=== PATIENT | male | born 1950 | race Caucasian/White ===

== ENCOUNTER → 2018-02-19 | Outpatient (CLI) | payer MEDICARE | LOC: M.ULTRA 09:46 | DX: G45.9 Transient cerebral ischemic attack, unspecified (principal); H53.129 Transient visual loss, unspecified eye ==

== ENCOUNTER 2019-12-07 15:17 | Inpatient (IN) | payer MEDICARE ==
[~2019-12-07] VITALS: Ht 175.3 cm; Wt 82.1 kg
[2019-12-07 15:28] VITALS: BP 149/88
[2019-12-07 16:00] LABS: HEMATOCRIT 42.7 % (42.0-52.0); HEMOGLOBIN 14.6 gm/dL (14.0-18.0); MCH 28.3 pg (26.0-34.0); MCHC 34.1 g/dL (28.0-37.0); MCV 83.1 fL (80.0-100.0); MPV 9.7 fl. (7.2-11.1); NUCLEATED RBCS 0 /100WBC; PLATELET COUNT* 213 thou/uL (150-400); RBC 5.14 mil/uL (4.50-6.00); RDW-CV 13.8 % (10.5-14.5); WBC 7.6 thou/uL (4.0-11.0)
[2019-12-07 16:16] LABS: ALBUMIN 4.2 g/dL (3.4-5.0); CALCIUM 9.2 mg/dL (8.5-10.1); CREATININE 1.6 mg/dL (0.6-1.3); POTASSIUM 4.9 mmol/L (3.5-5.1); TOTAL BILIRUBIN 0.8 mg/dL (<0.1-1.0); TOTAL PROTEIN 8.2 g/dL (6.4-8.2)
[2019-12-07 16:28] LABS: ABSOLUTE LYMPHOCYTES 0.5 thou/uL (0.8-5.3); ABSOLUTE MONOCYTES 0.2 thou/uL (0.0-1.2); ABSOLUTE NEUTROPHILS 6.9 thou/uL (1.6-8.1)
[2019-12-07 16:29] LABS: PLATELET ESTIMATE ADEQUATE
[2019-12-07 17:53] LABS: URINE BILIRUBIN NEGATIVE (Negative); URINE BLOOD TRACE (Negative); URINE CLARITY CLEAR; URINE COLOR YELLOW; URINE GLUCOSE-RANDOM NEGATIVE (Negative); URINE KETONES TRACE (Negative); URINE LEUKOCYTES-REFLEX NEGATIVE (Negative); URINE NITRITE-REFLEX NEGATIVE (Negative); URINE PROTEIN NEGATIVE (Negative); URINE UROBILINOGEN 0.2 E.U./dl (0.2-1.0)
[2019-12-07 20:10] VITALS: BP 142/81
[2019-12-07 20:12] VITALS: BP 148/77
[2019-12-08 00:45] VITALS: BP 115/65
[2019-12-08 04:32] VITALS: BP 116/69
[2019-12-08 04:53] LABS: WBC 6.4 thou/uL (4.0-11.0)
[2019-12-08 04:58] LABS: ABSOLUTE EOSINOPHILS 0.3 thou/uL (0.0-0.7); ABSOLUTE LYMPHOCYTES 1.8 thou/uL (0.8-5.3); ABSOLUTE MONOCYTES 0.6 thou/uL (0.0-1.2); ABSOLUTE NEUTROPHILS 3.7 thou/uL (1.6-8.1); BASOPHILS 0.7 %; EOSINOPHILS 4.4 %; HEMATOCRIT 39.1 % (42.0-52.0); HEMOGLOBIN 13.2 gm/dL (14.0-18.0); LYMPHOCYTES 28.2 %; MCHC 33.7 g/dL (28.0-37.0); MCV 83.1 fL (80.0-100.0); MONOCYTES 9.8 %; MPV 10.1 fl. (7.2-11.1); NUCLEATED RBCS 0 /100WBC; PLATELET COUNT* 194 thou/uL (150-400); POLYS 56.9 %; RBC 4.71 mil/uL (4.50-6.00); RDW-CV 13.9 % (10.5-14.5)
[2019-12-08 05:05] LABS: CALCIUM 8.4 mg/dL (8.5-10.1); CREATININE 1.4 mg/dL (0.6-1.3)
[2019-12-08 05:08] LABS: CHOLESTEROL 193 mg/dL (<200); HDL CHOLESTEROL 29 mg/dL (>40); LDL CHOLESTEROL 137 mg/dL (<100); TC:HDL 6.7 Ratio (Not establshd); TRIGLYCERIDE 138 mg/dL (<150); VLDL 28 mg/dL (<40)
[2019-12-08 05:13] LABS: POTASSIUM 3.6 mmol/L (3.5-5.1)
[2019-12-08 05:17] LABS: SERUM ASSESSMENT CLEAR
[2019-12-08 08:00] VITALS: BP 166/79
[2019-12-08 12:00] VITALS: BP 132/61
--- NOTE | 2019-12-08 12:55 | 2DMMODE ---
[place] [address] 2 D/M-MODE ECHOCARDIOGRAM Name: GOPI SHERIFF Room: [address] IN R.#: [id number] Admission: 12/07/19 Attend Phys: Gallo Blount, Discharge: Date of : 46 Date of Service: 12/08/19 1255 Report #: [id number] THIS REPORT FOR: cc: Jael Lomax Catherine FNP Holkins, John M. MD [facility] ~ APPROVED REPORT Study performed: 12/08/2019 09:52:51 EXAM: Comprehensive 2D, Doppler, and color-flow Echocardiogram Patient Location: Bedside BSA: 1.31 HR: 89 bpm BP: 166/79 mmHg Other Information Study Quality: Good Indications CVA/TIA Echo Enhancing Agent Indication: Rule out Shunt Agent(s) / Amount(s) Used: Agitated Saline cc 2D Dimensions IVSd: 13.18 (7-11mm) LVOT Diam: 18.86 (18-24mm) LVDd: 41.20 mm PWd: 10.27 (7-11mm) Ascending Ao: 34.16 (22-36mm) LVDs: 28.99 (25-40mm) Aortic Root: 34.09 mm Volumes Left Atrial Volume (Systole) LA ESV Index: 32.00 mL/m2 Aortic Valve AoV Peak Gaudencio.: 0.85 m/s AO Peak Gr.: 2.91 mmHg LVOT Max P.75 mmHg AO Mean Gr.: 1.55 mmHg LVOT Mean P.29 mmHg LVOT Max V: 0.83 m/s AO V2 VTI: 21.91 cm LVOT Mean V: 0.52 m/[place] [address] 2 D/M-MODE ECHOCARDIOGRAM Name: GOPI SHERIFF Room: [address]#: [id number] Admission: 12/07/19 Attend Phys: Gallo Blount, Discharge: Date of : 46 Date of Service: 12/08/19 1255 Report #: [id number] ADRIANA (VTI): 2.38 cm2 LVOT V1 VTI: 18.68 cm Mitral Valve E/A Ratio: 1.14 MV Decel. Time: 184.40 ms MV E Max Gaudencio.: 0.71 m/s MV PHT: 53.48 ms MVA (PHT): 4.11 cm2 TDI E/Lateral E': 8.88 E/Medial E': 7.10 Medial E' Gaudencio.: 0.10 m/s Lateral E' Gaudencio.: 0.08 m/s Pulmonary Valve PV Peak Gaudencio.: 0.81 m/s PV Peak Gr.: 2.63 mmHg Left Ventricle The left ventricle is normal size. There is normal LV segmental wall motion. There is normal left ventricular wall thickness. Left ventricular systolic function is normal. The left ventricular ejection fraction is within the normal range. LVEF is 55-60%. The left ventricular diastolic function is normal. Right Ventricle The right ventricle is normal size. The right ventricular systolic function is normal. Atria The left atrium size is normal. Injection of bubbles documented no interatrial shunt. The right atrium size is normal. Aortic Valve Mild aortic valve sclerosis. Trace aortic regurgitation. There is no aortic valvular stenosis. Mitral Valve The mitral valve is normal in structure. There is no mitral valve regurgitation noted. No evidence of mitral valve stenosis. Tricuspid Valve The tricuspid valve is normal in structure. There is no tricuspid valve regurgitation noted. Pulmonic Valve The pulmonary valve is normal in [place] [address] 2 D/M-MODE ECHOCARDIOGRAM Name: GOPI SHERIFF Room: [address]#: [id number] Admission: 12/07/19 Attend Phys: Gallo Blount, Discharge: Date of : 46 Date of Service: 12/08/19 1255 Report #: [id number] regurgitation. Great Vessels The aortic root is normal in size. IVC is normal in size and collapses >50% with inspiration. Pericardium There is no pericardial effusion. <Conclusion> The left ventricle is normal size. Left ventricular systolic function is normal. The left ventricular ejection fraction is within the normal range. LVEF is 55-60%. The left ventricular diastolic function is normal. The right ventricle is normal size. The left atrium size is normal. Mild aortic valve sclerosis. Trace aortic regurgitation. There is no aortic valvular stenosis. The mitral valve is normal in structure. The tricuspid valve is normal in structure. IVC is normal in size and collapses >50% with inspiration. There is no pericardial effusion. There is normal LV segmental wall motion. Injection of bubbles documented no interatrial shunt. <ELECTRONICALLY SIGNED> By: Shaq Fleming MD, FACC 12/08/19 1255 1255 1255 Shaq Fleming MD, FACC /INF
[2019-12-08 16:00] VITALS: BP 115/76
--- NOTE | 2019-12-08 16:12 | EKG ---
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 /EPI
[2019-12-08 16:52] VITALS: BP 115/76
[2019-12-09 02:06] LABS: GLYCOHEMOGLOBIN (HGB A1C) 5.6 % (4.8-5.6)
== END 2019-12-08 17:15 | disposition home or self-care (01) | DRG 640 ==
LOC: M.ERS 15:17 → M.2W 18:29 → M.TBA-ER 18:29 → M.2W 20:14
PROVIDERS: Nurse Practitioner Family; ADMIT Internal Medicine; ATTEND Internal Medicine
DX: E86.0 Dehydration (principal); N17.0 Acute kidney failure with tubular necrosis; H81.12 Benign paroxysmal vertigo, left ear; Z79.899 Other long term (current) drug therapy; H81.22 Vestibular neuronitis, left ear